=== PATIENT | female | born 1990 | race Caucasian/White ===

== ENCOUNTER 2020-05-27 02:39 | Inpatient (IN) | payer BC ==
[2020-05-27] MEDS ORDERED: Carboprost Tromethamine 250 MCG/1 ML Amp IM PRN (03:01)
[2020-05-27] MEDS ORDERED: Nalbuphine 10 MG/1 ML Vial IVPUSH PRN (03:01)
[2020-05-27] MEDS ORDERED: Lidocaine 1% 50 ML MDV INJECT PRN (03:01)
[2020-05-27] MEDS ORDERED: Tranexamic Acid 1,000 MG in Sodium Chloride 0.9% 100 ML IV PRN (03:01)
[2020-05-27] MEDS ORDERED: Water For Irrigation,Sterile 1,000 ML Container IRR PRN (03:01)
[2020-05-27] MEDS ORDERED: Sodium Chloride 0.9% 10 ML Syringe FLUSH PRN (03:01)
[2020-05-27] MEDS ORDERED: Methylergonovine 0.2 MG/1 ML Amp IM PRN (03:01)
[2020-05-27] MEDS ORDERED: Misoprostol 200 MCG Tab PO PRN (03:01)
[2020-05-27] MEDS ORDERED: Sodium Chloride 0.9% 10 ML SDV IV PRN (03:01)
[2020-05-27] MEDS ORDERED: Butorphanol 1 MG/ML SDV IVPUSH PRN (03:01)
[2020-05-27] MEDS ORDERED: Sodium Chloride 0.9% 2.5 ML Syringe FLUSH PRN (03:01)
[2020-05-27] MEDS ORDERED: Lactated Ringers 1,000 ML IV SCH (03:15)
[2020-05-27] MEDS ORDERED: Oxytocin/0.9 % Sodium Chloride 30 UNIT/500 ML BAG IV SCH (03:15)
--- NOTE | 2020-05-27 05:13 | PCM.LDHP ---
L&D History of Present Illness - General Date of Service: 05/27/20 Admit Problem/Dx: Patient Status Order with Admit Dx/Problem 05/27/20 03:01 Patient Status [ADT] Routine Admission Diagnosis/Problem Admission Diagnosis/Problem Planned Source of Information: Patient History Limitations: Reports: No Limitations - History of Present Illness Improves with: Reports: None Worsens with: Reports: None Associated Symptoms: Reports: N - Related Data Allergies/Adverse Reactions: Allergies Allergy/AdvReac Type Severity Reaction Status Date / Time cat dander Allergy Sneezing Verified 05/27/20 05:02 seasonal Allergy Sneezing Uncoded 05/27/20 05:05 Home Medications: Home Meds Fexofenadine HCl [Franny Allergy] 60 mg PO DAILY 06/26/16 [History] Past Medical History - Past Health History Medical/Surgical History: Denies Medical/Surgical History Respiratory History: Reports: Asthma 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: - Infectious Disease History Infectious Disease History: Reports: Chicken Pox Social & Family History - Family History Family Medical History: Noncontributory - Tobacco Use Smoking Status *Q: Never Smoker Second Hand Smoke Exposure: No H&P Review of Systems - Review of Systems: Review Of Systems: See Below General: Reports: No Symptoms HEENT: Reports: No Symptoms Pulmonary: Reports: No Symptoms Cardiovascular: Reports: No Symptoms Gastrointestinal: Reports: No Symptoms Genitourinary: Reports: No Symptoms Musculoskeletal: Reports: No Symptoms Skin: Reports: No Symptoms Psychiatric: Reports: No Symptoms Neurological: Reports: No Symptoms Hematologic/Lymphatic: Reports: No Symptoms Immunologic: Reports: No Symptoms L&D Exam - Exam Exam: See Below - Vital Signs Weight: 82.1 kg - OB Specific Contraction Intensity: Moderate to Strong Movement: Active Heart Tones: Present Presentation: Vertex - Peoples Score Peoples Score Cervix Position: Anterior Peoples Score Consistency: Soft Peoples Score Dilation: > 5 cm Peoples Score 's Station: -2 - Exam General: Alert, Oriented HEENT: PERRLA, Conjunctiva Clear, EACs Clear, EOMI, Hearing Intact, Mucosa Moist & [place], Nares Patent, Normal Nasal Septum, Posterior Pharynx Clear, TMs Clear Neck: Supple, Trachea Midline Lungs: Clear to Auscultation, Normal Respiratory Effort Cardiovascular: Regular Rate, Regular Rhythm GI/Abdominal Exam: Normal Bowel Sounds, Soft, Non-Tender, No Organomegaly, No Distention, No Abnormal Bruit, No Mass, Pelvis Stable Rectal Exam: Normal Exam, Normal Rectal Tone Genitourinary: Normal external exam, Normal bimanual exam, Normal speculum exam Back Exam: Normal Inspection, Full Range of Motion Extremities: Normal Inspection, Normal Range of Motion, Non-Tender, No Pedal Edema, Normal Capillary Refill Skin: Warm, Dry, Intact Neurological: Cranial Nerves Intact, Reflexes Equal Bilateral Psychiatric: Alert, Normal Affect, Normal Mood - Patient Data Lab Results Last 24 hrs: Laboratory Results - last 24 hr 05/27/20 05/27/20 05/27/20 Range/Units 03:09 03:09 03:14 WBC 15.20 H (4.0-11.0) K/uL RBC 4.09 L (4.30-5.90) M/uL Hgb 11.3 L (12.0-16.0) g/dL Hct 34.4 L (36.0-46.0) % MCV 84.1 (80.0-98.0) fL MCH 27.6 (27.0-32.0) pg MCHC 32.8 (31.0-37.0) g/dL RDW Std Deviation 40.2 (28.0-62.0) fl RDW Coeff of Ceasar 13 (11.0-15.0) % Plt Count 235 (150-400) K/uL MPV 10.10 (7.40-12.00) fL Nucleated RBC % 0.0 /100WBC Nucleated RBCs # 0 K/uL COVID-19 (RAMON) NEGATIVE (NEGATIVE) Blood Type B POSITIVE Antibody Screen NEGATIVE Result Diagrams: 05/27/20 03:09 Problem List Initiated/Reviewed/Updated: Yes Orders Last 24hrs: Active Orders 24 hr Category Date Time Status Patient Status [ADT] Routine ADT 05/27/20 03:01 Active Heart Tones [RC] CONTINUOUS Care 05/27/20 03:01 Active Non Stress Test [RC] PER UNIT ROUTINE Care 05/27/20 03:01 Active May Shower [RC] ASDIRECTED Care 05/27/20 03:01 Active Notify Provider [RC] PRN Care 05/27/20 03:01 Active Up ad Era [RC] ASDIRECTED Care 05/27/20 03:01 Active Vaginal Exam [RC] PRN Care 05/27/20 03:01 Active Vital Signs [RC] PER UNIT ROUTINE Care 05/27/20 03:01 Active RPR (SYPHILIS SERO) W/ RFLX [REF] Routine Lab 05/27/20 03:09 Received Butorphanol [Stadol] Med 05/27/20 03:01 Active 1 mg IVPUSH Q1H PRN Carboprost Tromethamine [Hemabate DS] Med 05/27/20 03:01 Active 250 mcg IM ASDIRECTED PRN Lactated Ringers [Ringers, Lactated] 1,000 ml Med 05/27/20 03:15 Active IV ASDIRECTED Lidocaine 1% [Xylocaine 1%] Med 05/27/20 03:01 Active 50 ml INJECT ONETIME PRN Methylergonovine [Methergine] Med 05/27/20 03:01 Active 0.2 mg IM ASDIRECTED PRN Nalbuphine [Nubain] Med 05/27/20 03:01 Active 10 mg IVPUSH Q1H PRN Oxytocin/0.9 % Sodium Chloride [Oxytocin 30 Unit/500 ML Med 05/27/20 03:15 Active -NS] 30 unit in 500 ml IV TITRATE Sodium Chloride 0.9% [Normal Saline] Med 05/27/20 03:01 Active 10 ml IV ASDIRECTED PRN Sodium Chloride 0.9% [Saline Flush] Med 05/27/20 03:01 Active 10 ml FLUSH ASDIRECTED PRN Sodium Chloride 0.9% [Saline Flush] Med 05/27/20 03:01 Active 2.5 ml FLUSH ASDIRECTED PRN Tranexamic Acid [Cyklokapron] 1,000 mg Med 05/27/20 03:01 Active Sodium Chloride 0.9% [Normal Saline] 100 ml IV ONETIME Water For Irrigation,Sterile [Sterile Water for Med 05/27/20 03:01 Active Irrigation] 1,000 ml IRR ASDIRECTED PRN miSOPROStoL [Cytotec] Med 05/27/20 03:01 Active 200 mcg PO ONETIME PRN Scalp Electrode [WOMSER] Per Unit Routine Oth 05/27/20 03:01 Ordered Peripheral IV Insertion Adult [OM.PC] Routine Oth 05/27/20 03:01 Ordered Resuscitation Status Routine Resus Stat 05/27/20 03:01 Ordered Medication Orders Butorphanol Tartrate (Stadol) 1 mg IVPUSH Q1H PRN PRN Reason: Pain Carboprost Tromethamine (Hemabate Ds) 250 mcg IM ASDIRECTED PRN PRN Reason: Post Hemorrhage Oxytocin/Sodium Chloride (Oxytocin 30 Unit/500 Ml-Ns) 30 unit in 500 mls @ 500 mls/hr IV TITRATE [facility] Tranexamic Acid 1,000 mg/ (Sodium Chloride) 110 mls @ 660 mls/hr IV ONETIME PRN PRN Reason: Bleeding Lactated Ringer's (Ringers, Lactated) 1,000 mls @ 150 mls/hr IV ASDIRECTED GOMEZ Last Admin: 05/27/20 03:17 Dose: 999 mls/hr Documented by: YOLI Lidocaine HCl (Xylocaine 1%) 50 ml INJECT ONETIME PRN PRN Reason: Laceration repair Methylergonovine Maleate (Methergine) 0.2 mg IM ASDIRECTED PRN PRN Reason: Post Hemorrhage Misoprostol (Cytotec) 200 mcg PO ONETIME PRN PRN Reason: Post Hemorrhage Nalbuphine HCl (Nubain) 10 mg IVPUSH Q1H PRN PRN Reason: Pain (severe 7-10) Sodium Chloride (Saline Flush) 10 ml FLUSH ASDIRECTED PRN PRN Reason: Keep Vein Open Sodium Chloride (Saline Flush) 2.5 ml FLUSH ASDIRECTED PRN PRN Reason: Keep Vein Open Sodium Chloride (Normal Saline) 10 ml IV ASDIRECTED PRN PRN Reason: IV Use Sterile Water (Sterile Water For Irrigation) 1,000 ml IRR ASDIRECTED PRN PRN Reason: delivery
[2020-05-27] MEDS ORDERED: Ibuprofen 800 MG Tab PO PRN (06:02)
[2020-05-27] MEDS ORDERED: Ibuprofen 400 MG Tab PO PRN (06:02)
[2020-05-27] MEDS ORDERED: Docusate Sodium 100 MG Cap PO PRN (06:02)
[2020-05-27] MEDS ORDERED: oxyCODONE 5 MG Tab PO PRN (06:02)
[2020-05-27] MEDS ORDERED: Bisacodyl 10 MG Supp RECTAL PRN (06:02)
[2020-05-27] MEDS ORDERED: Acetaminophen 500 MG Tab PO PRN ×2 (06:02)
[2020-05-27] MEDS: Witch Hazel Medicated Pads 40/Jar TOP PRN (08:05)
[2020-05-27] MEDS: Lanolin 100% Cream 7 GM Tube TOP PRN (08:05)
[2020-05-27] MEDS: Benzocaine/Menthol 20%-0.5% Spray 78 GM Cannister TOP PRN (08:05)
--- NOTE | 2020-05-27 13:43 | OR ---
SURGEON: Albin Herrera MD DATE OF PROCEDURE: 05/27/2020 PRIMARY SURGEON: Albin Herrera MD INDICATION: Ms. Tobias is a 29-year-old patient, primigravida. She is followed in our clinic primarily by our Nurse [facility]. The patient had no complication. Her GBS status was negative, and her diabetes screen was normal. The patient is term, 40 weeks. DELIVERY NOTE: She was admitted in active labor. At the time of admission, she was 5 cm, and the patient went natural without epidural. She progressed nicely without any problem to complete, complete, and commenced to push, and after pushing for 45 minutes, she was able to accomplish normal spontaneous vaginal delivery of a female fetus, cried immediately. scores were reported to be 8 and 9, and there was 1 nuchal cord, and then, the placenta delivered spontaneous, complete, and intact without any problem. The patient had a second-degree perineal laceration, and that was repaired with 3-0 Vicryl in layer after infiltrating the area with copious amount of Xylocaine. The estimated blood loss was 350 to 400 mL. There was no complication in the labor process and the delivery. heart rate was category I through the entire process of labor. MAYRA / ARPITA /[id number]
--- NOTE | 2020-05-28 08:07 | PCM.DCSUM1 ---
Discharge Summary - Hospital Course Free Text/Narrative:: Discharge home with baby. Follow up in the clinic in 6 weeks for routine visit. Diagnosis: Stroke: No Modified Ryanne Scale: No Symptoms at All Modified Cleveland Scale Score: 0 - Discharge Data Discharge Date: 05/28/20 Discharge Disposition: Home, Self-Care 01 Condition: Good - Referral to Home Health Primary Care Physician: PCP None - Discharge Diagnosis/Problem(s) (1) (spontaneous vaginal delivery) SNOMED Code(s): 557695247 ICD Code: O80 - ENCOUNTER FOR FULL-TERM UNCOMPLICATED DELIVERY Status: Acute Current Visit: Yes - Patient Instructions Diet: Regular Diet as Tolerated, Drink 8-10+ Glasses/Day Activity: As Tolerated, No Strenuous Activities, Rest and Relax Today Driving: May Drive Today Showering/Bathing: May Shower Notify Provider of: Fever, Increased Pain, Swelling and Redness, Drainage, Nausea and/or Vomiting - Discharge Plan *PRESCRIPTION DRUG MONITORING PROGRAM REVIEWED*: Not Applicable *COPY OF PRESCRIPTION DRUG MONITORING REPORT IN PATIENT SERENA: Not Applicable Prescriptions/Med Rec: Ibuprofen [Motrin] 800 mg PO Q6H PRN #90 tablet PRN Reason: Pain Home Medications: Home Meds Fexofenadine HCl [Franny Allergy] 60 mg PO DAILY 06/26/16 [History] Ibuprofen [Motrin] 800 mg PO Q6H PRN #90 tablet 05/28/20 [Rx] Referrals: [facility] [Outside] Albin Herrera MD [Physician] - 07/08/20 1:30 pm - Discharge Summary/Plan Comment DC Time >30 min.: Yes - General Info Date of Service: 05/28/20 Admission Dx/Problem (Free Text: Patient Status Order with Admit Dx/Problem 05/27/20 03:01 Patient Status [ADT] Routine Admission Diagnosis/Problem Admission Diagnosis/Problem Planned Functional Status: Reports: Pain Controlled, Tolerating Diet, Ambulating, Urinating - Review of Systems General: Reports: No Symptoms HEENT: Reports: No Symptoms Pulmonary: Reports: No Symptoms Cardiovascular: Reports: No Symptoms Gastrointestinal: Reports: No Symptoms Genitourinary: Reports: No Symptoms Musculoskeletal: Reports: No Symptoms Skin: Reports: No Symptoms Neurological: Reports: No Symptoms Psychiatric: Reports: No Symptoms - Patient Data Vitals - Most Recent: Last Vital Signs Temp 97.6 F 05/28/20 04:00 Pulse 73 05/28/20 04:00 Resp 14 05/28/20 04:00 BP 110/66 05/28/20 04:00 Pulse Ox 95 05/28/20 04:00 Weight - Most Recent: 181 lb Lab Results - Last 24 hrs: Laboratory Results - last 24 hr 05/28/20 Range/Units 06:15 Hgb 9.3 L (12.0-16.0) g/dL Hct 28.6 L (36.0-46.0) % Med Orders - Current: Current Medications Acetaminophen (Tylenol Extra Strength) 500 mg PO Q4H PRN PRN Reason: Pain Acetaminophen (Tylenol Extra Strength) 1,000 mg PO Q4H PRN PRN Reason: Pain Benzocaine/Menthol (Dermoplast Pain Relief 20%-0.5% Calcium) 78 gm TOP ASDIRECTED PRN PRN Reason: Perineal Comfort Measure Last Admin: 05/27/20 08:05 Dose: 1 canister Documented by: Bisacodyl (Dulcolax) 10 mg RECTAL ONETIME PRN PRN Reason: Constipation Butorphanol Tartrate (Stadol) 1 mg IVPUSH Q1H PRN PRN Reason: Pain Carboprost Tromethamine (Hemabate Ds) 250 mcg IM ASDIRECTED PRN PRN Reason: Post Hemorrhage Docusate Sodium (Colace) 100 mg PO BID PRN PRN Reason: Constipation Emollient Ointment (Lansinoh Hpa) 0 gm TOP ASDIRECTED PRN PRN Reason: Sore Nipples Last Admin: 05/27/20 08:05 Dose: 7 gm Documented by: Oxytocin/Sodium Chloride (Oxytocin 30 Unit/500 Ml-Ns) 30 unit in 500 mls @ 500 mls/hr IV TITRATE [facility] Last Admin: 05/27/20 05:50 Dose: 500 mls/hr Documented by: Tranexamic Acid 1,000 mg/ (Sodium Chloride) 110 mls @ 660 mls/hr IV ONETIME PRN PRN Reason: Bleeding Lactated Ringer's (Ringers, Lactated) 1,000 mls @ 150 mls/hr IV ASDIRECTED [facility] Last Admin: 05/27/20 03:17 Dose: 999 mls/hr Documented by: Ibuprofen (Motrin) 400 mg PO Q4H PRN PRN Reason: Pain Ibuprofen (Motrin) 800 mg PO Q6H PRN PRN Reason: Pain Lidocaine HCl (Xylocaine 1%) 50 ml INJECT ONETIME PRN PRN Reason: Laceration repair Methylergonovine Maleate (Methergine) 0.2 mg IM ASDIRECTED PRN PRN Reason: Post Hemorrhage Misoprostol (Cytotec) 200 mcg PO ONETIME PRN PRN Reason: Post Hemorrhage Nalbuphine HCl (Nubain) 10 mg IVPUSH Q1H PRN PRN Reason: Pain (severe 7-10) Oxycodone HCl (Oxycodone) 5 mg PO Q2H PRN PRN Reason: Pain Sodium Chloride (Saline Flush) 10 ml FLUSH ASDIRECTED PRN PRN Reason: Keep Vein Open Sodium Chloride (Saline Flush) 2.5 ml FLUSH ASDIRECTED PRN PRN Reason: Keep Vein Open Sodium Chloride (Normal Saline) 10 ml IV ASDIRECTED PRN PRN Reason: IV Use Sterile Water (Sterile Water For Irrigation) 1,000 ml IRR ASDIRECTED PRN PRN Reason: delivery Margarita Montanez (Tucks) 1 pad TOP ASDIRECTED PRN PRN Reason: comfort care Last Admin: 05/27/20 08:05 Dose: 1 container Documented by: - Exam General: Reports: Alert, Oriented, Cooperative Lungs: Reports: Normal Respiratory Effort Cardiovascular: Reports: Regular Rate, Regular Rhythm GI/Abdominal Exam: Soft, Non-Tender (Female) Exam: Deferred Rectal (Female) Exam: Deferred Back Exam: Reports: Normal Inspection, Full Range of Motion Extremities: Normal Inspection, Normal Range of Motion Skin: Reports: Warm, Dry, Intact Wound/Incisions: Reports: Healing Well Neurological: Reports: Normal Speech, Normal Tone Psy/Mental Status: Reports: Alert, Normal Affect, Normal Mood
[2020-05-28] MEDS: Witch Hazel Medicated Pads 40/Jar TOP PRN (08:22)
[2020-05-28] MEDS: Benzocaine/Menthol 20%-0.5% Spray 78 GM Cannister TOP PRN (08:23)
[2020-05-28] MEDS: Lanolin 100% Cream 7 GM Tube TOP PRN (08:23)
[2020-05-28 09:00] VITALS: BP 107/69; PULSE 80
== END 2020-05-28 11:45 | disposition home or self-care (01) | DRG 560 ==
LOC: MW.OBCHECK 02:39 → MW.OB 02:40 → MW.OBCHECK 05:30 → OBSVTOIN 05:49 → MW.OB 08:34
PROVIDERS: ADMIT Obstetrics & Gynecology; ATTEND Obstetrics & Gynecology
PROC: 10E0XZZ Delivery of Products of Conception, External Approach (ICD-10-PCS; principal; 2020-05-27)
PROC: 0KQM0ZZ Repair Perineum Muscle, Open Approach (ICD-10-PCS; 2020-05-27)
DX: O69.81X0 Labor and delivery complicated by cord around neck, without compression, not applicable or unspecified (principal); Z37.0 Single live birth; Z3A.40 40 weeks gestation of pregnancy; O99.52 Diseases of the respiratory system complicating childbirth; J45.909 Unspecified asthma, uncomplicated; Z91.09 Other allergy status, other than to drugs and biological substances; O70.1 Second degree perineal laceration during delivery; Z11.59 Encounter for screening for other viral diseases
CPT/HCPCS: 36415; 59025; 59409; 85014; 85018; 85027; 86592; 86850; 86900; 86901; A9270-GY; J2590; J7120; U0002

== ENCOUNTER 2021-09-22 17:08 | Observation (INO) | payer BC ==
--- NOTE | 2021-09-22 17:11 | EDM.PDOC ---
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 States for the past 3 weeks she has had continuously bleeding in the past 2 days and believes he picked up to where she needs more than 1 pad every 30 minutes. States that she used call for follow-up today and she felt lightheaded weekly took her blood pressure and it was down in the 90s. Her significant other at the bedside states that she looks more pale she is been tired and weak. She denies any abdominal pain no foul-smelling discharge or other complaints. 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: - Infectious Disease History Infectious Disease History: Reports: Chicken Pox Social & Family History - Family History Family Medical History: No Pertinent Family History ED ROS GENERAL - Review of Systems Review Of Systems: See Below Constitutional: Reports: No Symptoms HEENT: Reports: No Symptoms Respiratory: Reports: No Symptoms Cardiovascular: Reports: No Symptoms Endocrine: Reports: No Symptoms GI/Abdominal: Reports: No Symptoms : Reports: Other (Vaginal bleeding) Musculoskeletal: Reports: No Symptoms Skin: Reports: No Symptoms Neurological: Reports: No Symptoms Psychiatric: Reports: No Symptoms Hematologic/Lymphatic: Reports: No Symptoms Immunologic: Reports: No Symptoms ED EXAM - Physical Exam Exam: See Below Exam Limited By: No Limitations General Appearance: Alert, WD/WN, No Apparent Distress Eye Exam: Bilateral Eye: EOMI Head: Atraumatic Neck: Normal Inspection Respiratory/Chest: No Respiratory Distress GI/Abdominal Exam: Normal Bowel Sounds, Soft, Non-Tender Extremities: Normal Inspection Neurological: Alert, Oriented, Normal Cognition, Normal Gait Course - Vital Signs Last Recorded V/S: Last Vital Signs Temp 97.8 F 09/22/21 17:11 Pulse 93 09/22/21 17:11 Resp 18 09/22/21 17:11 BP 100/63 09/22/21 17:11 Pulse Ox 98 09/22/21 17:11 - Orders/Labs/Meds Orders: Active Orders 24 hr Category Date Time Status CBC WITH AUTO DIFF [HEME] Stat Lab 09/22/21 17:09 Ordered COMPREHENSIVE METABOLIC PN,CMP [CHEM] Stat Lab 09/22/21 17:09 Ordered CORONAVIRUS COVID-19 RAMON [MOLEC] Stat Lab 09/22/21 17:16 Ordered HCG QUANTITATIVE [CHEM] Stat Lab 09/22/21 17:09 Ordered LACTATE SEPSIS W/ REFLEX [CHEM] Stat Lab 09/22/21 17:09 Ordered TYPE AND SCREEN [BBK] Stat Lab 09/22/21 17:09 Ordered Departure - Departure Time of Disposition: 17:20 Disposition: Refer to Observation Condition: Good Clinical Impression: Spontaneous - Discharge Information *PRESCRIPTION DRUG MONITORING PROGRAM REVIEWED*: Not Applicable *COPY OF PRESCRIPTION DRUG MONITORING REPORT IN PATIENT SERENA: Not Applicable Forms: ED Department Discharge Sepsis Event Note (ED) - Focused Exam Vital Signs: Vital Signs Temp Pulse Resp BP Pulse Ox 09/22/21 17:11 97.8 F 93 18 100/63 98 - My Orders Last 24 Hours: My Active Orders 09/22/21 17:09 CBC WITH AUTO DIFF [HEME] Stat COMPREHENSIVE METABOLIC PN,CMP [CHEM] Stat HCG QUANTITATIVE [CHEM] Stat LACTATE SEPSIS W/ REFLEX [CHEM] Stat TYPE AND SCREEN [BBK] Stat 09/22/21 17:16 CORONAVIRUS COVID-19 RAMON [MOLEC] Stat - Assessment/Plan Last 24 Hours: My Active Orders 09/22/21 17:09 CBC WITH AUTO DIFF [HEME] Stat COMPREHENSIVE METABOLIC PN,CMP [CHEM] Stat HCG QUANTITATIVE [CHEM] Stat LACTATE SEPSIS W/ REFLEX [CHEM] Stat TYPE AND SCREEN [BBK] Stat 09/22/21 17:16 CORONAVIRUS COVID-19 [facility]ON [MOLEC] Stat Plan: Patient is a 30-year-old female who had a miscarriage at 6 weeks and for the past 4 weeks has had bleeding. She was in the [facility] clinic when I called her back for spotting of the blood pressure dropped and she became lightheaded. We will obtain a CBC p.m. and transfuse as needed.
[2021-09-22] MEDS ORDERED: Sodium Chloride 0.9% 1,000 ML IV ONE (17:27)
[2021-09-22 18:13] LABS: BLOOD UREA NITROGEN,BUN 16 mg/dL (7.0-18.0); CARBON DIOXIDE,CO2 24.2 mmol/L (21.0-32.0); CHLORIDE,CL 106 mmol/L (98-107); GLUCOSE RANDOM 118 mg/dL (74-106); POTASSIUM,K 3.9 mmol/L (3.5-5.1); SODIUM,NA 140 mmol/L (136-145)
[2021-09-22] MEDS ORDERED: Lactated Ringers 1,000 ML IV SCH (21:00)
[2021-09-22] MEDS ORDERED: Ibuprofen 800 MG Tab PO PRN (21:01)
[2021-09-23 08:11] VITALS: BP 121/67; PULSE 89
--- NOTE | 2021-09-23 10:12 | PCM.HP.2 ---
H&P History of Present Illness - General Date of Service: 09/23/21 Admit Problem/Dx: Admission Diagnosis/Problem Admission Diagnosis/Problem Spontaneous Source of Information: Patient History Limitations: Reports: No Limitations - History of Present Illness Improves with: Reports: None Worsens with: Reports: None Associated Symptoms: Reports: No Other Symptoms - Related Data Allergies/Adverse Reactions: Allergies Allergy/AdvReac Type Severity Reaction Status Date / Time cat dander Allergy Sneezing Verified 09/22/21 17:10 seasonal Allergy Sneezing Uncoded 09/22/21 17:10 Home Medications: Home Meds Fexofenadine HCl [Franny Allergy] 60 mg PO DAILY 06/26/16 [History] Ibuprofen [Motrin] 800 mg PO Q6H PRN #90 tablet 05/28/20 [Rx] Past Medical History - Past Health History Medical/Surgical History: Denies Medical/Surgical History Respiratory History: Reports: Asthma 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: - Infectious Disease History Infectious Disease History: Reports: Chicken Pox Social & Family History - Family History Family Medical History: No Pertinent Family History OBGYN: Reports: Endocrine/Metabolic: Reports: None - Tobacco Use Tobacco Use Status *Q: Never Tobacco User - Caffeine Use Caffeine Use: Reports: Coffee - Recreational Drug Use Recreational Drug Use: No H&P Review of Systems - Review of Systems: Review Of Systems: See Below General: Reports: No Symptoms HEENT: Reports: No Symptoms Pulmonary: Reports: No Symptoms Cardiovascular: Reports: No Symptoms Gastrointestinal: Reports: No Symptoms Genitourinary: Reports: No Symptoms Musculoskeletal: Reports: No Symptoms Skin: Reports: No Symptoms Psychiatric: Reports: No Symptoms Neurological: Reports: No Symptoms Hematologic/Lymphatic: Reports: No Symptoms Immunologic: Reports: No Symptoms Exam - Exam Exam: See Below - Vital Signs Vital Signs: Last Vital Signs Temp 37.1 C 09/23/21 08:00 Pulse 89 09/23/21 08:00 Resp 18 09/23/21 08:00 BP 121/67 09/23/21 08:00 Pulse Ox 98 09/23/21 08:00 Weight: 73.482 kg - Exam General: Alert, Oriented, 4 HEENT: PERRLA, Hearing Intact, Mucosa Moist & [place], Nares Patent, Normal Nasal Septum, Posterior Pharynx Clear, Conjunctiva Clear, EOMI, EACs Clear, TMs Clear Neck: Supple, Trachea Midline, 2 Lungs: Clear to Auscultation, Normal Respiratory Effort Cardiovascular: Regular Rate, Regular Rhythm GI/Abdominal Exam: Normal Bowel Sounds, Soft, Non-Tender, No Organomegaly, No Distention, No Abnormal Bruit, No Mass, Pelvis Stable (Female) Exam: Normal External Exam, Normal Speculum Exam, Normal Bimanual E xam Rectal (Female) Exam: Normal Exam, Normal Rectal Tone Back Exam: Normal Inspection, Full Range of Motion, NT Extremities: Normal Inspection, Normal Range of Motion, Non-Tender, No Pedal Edema, Normal Capillary Refill Skin: Warm, Dry, Intact Neurological: Cranial Nerves Intact, Reflexes Equal Bilateral Neuro Extensive - Mental Status: Alert, Oriented x3, Normal Mood/Affect, Normal Cognition Neuro Extensive - Motor, Sensory, Reflexes: CN II-XII Intact, Normal Gait, Normal Reflexes Psychiatric: Alert, Normal Affect, Normal Mood - Patient Data Lab Results Last 24 hrs: Laboratory Results - last 24 hr 09/22/21 09/22/21 09/22/21 Range/Units 17:15 17:15 17:22 WBC 9.72 (4.0-11.0) K/uL RBC 3.72 L (4.30-5.90) M/uL Hgb 10.2 L (12.0-16.0) g/dL Hct 30.3 L (36.0-46.0) % MCV 81.5 (80.0-98.0) fL MCH 27.4 (27.0-32.0) pg MCHC 33.7 (31.0-37.0) g/dL RDW Std Deviation 40.6 (28.0-62.0) fl RDW Coeff of Ceasar 14 (11.0-15.0) % Plt Count 280 (150-400) K/uL MPV 9.30 (7.40-12.00) fL Neut % (Auto) 62.7 (48.0-80.0) % Lymph % (Auto) 28.2 (16.0-40.0) % [place] % (Auto) 6.5 (0.0-15.0) % Eos % (Auto) 2.4 (0.0-7.0) % Baso % (Auto) 0.2 (0.0-1.5) % Neut # (Auto) 6.1 H (1.4-5.7) K/uL Lymph # (Auto) 2.7 H (0.6-2.4) K/uL [place] # (Auto) 0.6 (0.0-0.8) K/uL Eos # (Auto) 0.2 (0.0-0.7) K/uL Baso # (Auto) 0.0 (0.0-0.1) K/uL Nucleated RBC % 0.0 /100WBC Nucleated RBCs # 0 K/uL Sodium 140 (136-145) mmol/L Potassium 3.9 (3.5-5.1) mmol/L Chloride 106 (98-107) mmol/L Carbon Dioxide 24.2 (21.0-32.0) mmol/L BUN 16 (7.0-18.0) mg/dL Creatinine 0.8 (0.6-1.0) mg/dL Est Cr Clr Drug Dosing 97.13 mL/min Estimated GFR (MDRD) > 60.0 ml/min Glucose 118 H (74-106) mg/dL Lactic Acid 1.7 (0.4-2.0) mmol/L Calcium 8.4 L (8.5-10.1) mg/dL Total Bilirubin 0.2 (0.2-1.0) mg/dL AST 12 L (15-37) IU/L ALT 12 L (14-63) IU/L Alkaline Phosphatase 67 (46-116) U/L Total Protein 6.9 (6.4-8.2) g/dL Albumin 3.4 (3.4-5.0) g/dL Globulin 3.5 (2.6-4.0) g/dL Albumin/Globulin Ratio 1.0 (0.9-1.6) HCG, Quant 2515.0 mIU/mL SARS-CoV-2 RNA (RAMON) (NEGATIVE) Blood Type Antibody Screen 09/22/21 09/22/21 09/23/21 Range/Units 17:22 17:30 05:14 WBC 8.01 (4.0-11.0) K/uL RBC 2.86 L (4.30-5.90) M/uL Hgb 7.8 L (12.0-16.0) g/dL Hct 23.4 L (36.0-46.0) % MCV 81.8 (80.0-98.0) fL MCH 27.3 (27.0-32.0) pg MCHC 33.3 (31.0-37.0) g/dL RDW Std Deviation 41.7 (28.0-62.0) fl RDW Coeff of Ceasar 14 (11.0-15.0) % Plt Count 232 (150-400) K/uL MPV 9.00 (7.40-12.00) fL Neut % (Auto) (48.0-80.0) % Lymph % (Auto) (16.0-40.0) % [place] % (Auto) (0.0-15.0) % Eos % (Auto) (0.0-7.0) % Baso % (Auto) (0.0-1.5) % Neut # (Auto) (1.4-5.7) K/uL Lymph # (Auto) (0.6-2.4) K/uL [place] # (Auto) (0.0-0.8) K/uL Eos # (Auto) (0.0-0.7) K/uL Baso # (Auto) (0.0-0.1) K/uL Nucleated RBC % 0.0 /100WBC Nucleated RBCs # 0 K/uL Sodium (136-145) mmol/L Potassium (3.5-5.1) mmol/L Chloride (98-107) mmol/L Carbon Dioxide (21.0-32.0) mmol/L BUN (7.0-18.0) mg/dL Creatinine (0.6-1.0) mg/dL Est Cr Clr Drug Dosing mL/min Estimated GFR (MDRD) ml/min Glucose (74-106) mg/dL Lactic Acid (0.4-2.0) mmol/L Calcium (8.5-10.1) mg/dL Total Bilirubin (0.2-1.0) mg/dL AST (15-37) IU/L ALT (14-63) IU/L Alkaline Phosphatase (46-116) U/L Total Protein (6.4-8.2) g/dL Albumin (3.4-5.0) g/dL Globulin (2.6-4.0) g/dL Albumin/Globulin Ratio (0.9-1.6) HCG, Quant mIU/mL SARS-CoV-2 RNA (RAMON) NEGATIVE (NEGATIVE) Blood Type B POSITIVE Antibody Screen NEGATIVE Result Diagrams: 09/23/21 05:14 09/22/21 17:15 Sepsis Event Note - Evaluation Sepsis Screening Result: No Definite Risk - Focused Exam Vital Signs: Vital Signs Temp Pulse Resp BP Pulse Ox 09/23/21 08:00 37.1 C 89 18 121/67 98 09/23/21 05:15 36.6 C 81 17 116/62 98 09/22/21 23:50 36.9 C 89 15 104/51 L 96 Problem List Initiated/Reviewed/Updated: Yes Orders Last 24hrs: Active Orders 24 hr Category Date Time Status Patient Status [ADT] Routine ADT 09/22/21 17:21 Active Patient Status [ADT] Routine ADT 09/22/21 19:00 Active May Shower [RC] ASDIRECTED Care 09/22/21 23:37 Active Up ad Era [RC] ASDIRECTED Care 09/22/21 23:37 Active Vital Signs [RC] PER UNIT ROUTINE Care 09/22/21 19:00 Active Ibuprofen [Motrin] Med 09/22/21 21:01 Active 800 mg PO Q8H PRN Lactated Ringers [Ringers, Lactated] 1,000 ml Med 09/22/21 21:00 Active IV ASDIRECTED Assess Lochia [WOMSER] Per Unit Routine Oth 09/22/21 23:37 Ordered Peripheral IV Discontinue [OM.PC] Routine Oth 09/22/21 23:37 Ordered Resuscitation Status Routine Resus Stat 09/22/21 23:37 Ordered Medication Orders Lactated Ringer's (Ringers, Lactated) 1,000 mls @ 125 mls/hr IV ASDIRECTED GOMEZ Last Admin: 09/22/21 21:21 Dose: 125 mls/hr Documented by: RENAE Ibuprofen (Ibuprofen 800 Mg Tab) 800 mg PO Q8H PRN PRN Reason: Cramping
--- NOTE | 2021-09-23 10:16 | PCM.PN ---
- General Info Date of Service: 09/23/21 Functional Status: Reports: Pain Controlled - Review of Systems General: Reports: No Symptoms HEENT: Reports: No Symptoms Pulmonary: Reports: No Symptoms Cardiovascular: Reports: No Symptoms Gastrointestinal: Reports: No Symptoms Genitourinary: Reports: No Symptoms Musculoskeletal: Reports: No Symptoms Skin: Reports: No Symptoms Neurological: Reports: No Symptoms Psychiatric: Reports: No Symptoms - Patient Data Vitals - Most Recent: Last Vital Signs Temp 37.1 C 09/23/21 08:00 Pulse 89 09/23/21 08:00 Resp 18 09/23/21 08:00 BP 121/67 09/23/21 08:00 Pulse Ox 98 09/23/21 08:00 Weight - Most Recent: 73.482 kg Lab Results Last 24 Hours: Laboratory Results - last 24 hr 09/22/21 09/22/21 09/22/21 Range/Units 17:15 17:15 17:22 WBC 9.72 (4.0-11.0) K/uL RBC 3.72 L (4.30-5.90) M/uL Hgb 10.2 L (12.0-16.0) g/dL Hct 30.3 L (36.0-46.0) % MCV 81.5 (80.0-98.0) fL MCH 27.4 (27.0-32.0) pg MCHC 33.7 (31.0-37.0) g/dL RDW Std Deviation 40.6 (28.0-62.0) fl RDW Coeff of Ceasar 14 (11.0-15.0) % Plt Count 280 (150-400) K/uL MPV 9.30 (7.40-12.00) fL Neut % (Auto) 62.7 (48.0-80.0) % Lymph % (Auto) 28.2 (16.0-40.0) % [place] % (Auto) 6.5 (0.0-15.0) % Eos % (Auto) 2.4 (0.0-7.0) % Baso % (Auto) 0.2 (0.0-1.5) % Neut # (Auto) 6.1 H (1.4-5.7) K/uL Lymph # (Auto) 2.7 H (0.6-2.4) K/uL [place] # (Auto) 0.6 (0.0-0.8) K/uL Eos # (Auto) 0.2 (0.0-0.7) K/uL Baso # (Auto) 0.0 (0.0-0.1) K/uL Nucleated RBC % 0.0 /100WBC Nucleated RBCs # 0 K/uL Sodium 140 (136-145) mmol/L Potassium 3.9 (3.5-5.1) mmol/L Chloride 106 (98-107) mmol/L Carbon Dioxide 24.2 (21.0-32.0) mmol/L BUN 16 (7.0-18.0) mg/dL Creatinine 0.8 (0.6-1.0) mg/dL Est Cr Clr Drug Dosing 97.13 mL/min Estimated GFR (MDRD) > 60.0 ml/min Glucose 118 H (74-106) mg/dL Lactic Acid 1.7 (0.4-2.0) mmol/L Calcium 8.4 L (8.5-10.1) mg/dL Total Bilirubin 0.2 (0.2-1.0) mg/dL AST 12 L (15-37) IU/L ALT 12 L (14-63) IU/L Alkaline Phosphatase 67 (46-116) U/L Total Protein 6.9 (6.4-8.2) g/dL Albumin 3.4 (3.4-5.0) g/dL Globulin 3.5 (2.6-4.0) g/dL Albumin/Globulin Ratio 1.0 (0.9-1.6) HCG, Quant 2515.0 mIU/mL SARS-CoV-2 RNA (RAMON) (NEGATIVE) Blood Type Antibody Screen 09/22/21 09/22/21 09/23/21 Range/Units 17:22 17:30 05:14 WBC 8.01 (4.0-11.0) K/uL RBC 2.86 L (4.30-5.90) M/uL Hgb 7.8 L (12.0-16.0) g/dL Hct 23.4 L (36.0-46.0) % MCV 81.8 (80.0-98.0) fL MCH 27.3 (27.0-32.0) pg MCHC 33.3 (31.0-37.0) g/dL RDW Std Deviation 41.7 (28.0-62.0) fl RDW Coeff of Ceasar 14 (11.0-15.0) % Plt Count 232 (150-400) K/uL MPV 9.00 (7.40-12.00) fL Neut % (Auto) (48.0-80.0) % Lymph % (Auto) (16.0-40.0) % [place] % (Auto) (0.0-15.0) % Eos % (Auto) (0.0-7.0) % Baso % (Auto) (0.0-1.5) % Neut # (Auto) (1.4-5.7) K/uL Lymph # (Auto) (0.6-2.4) K/uL [place] # (Auto) (0.0-0.8) K/uL Eos # (Auto) (0.0-0.7) K/uL Baso # (Auto) (0.0-0.1) K/uL Nucleated RBC % 0.0 /100WBC Nucleated RBCs # 0 K/uL Sodium (136-145) mmol/L Potassium (3.5-5.1) mmol/L Chloride (98-107) mmol/L Carbon Dioxide (21.0-32.0) mmol/L BUN (7.0-18.0) mg/dL Creatinine (0.6-1.0) mg/dL Est Cr Clr Drug Dosing mL/min Estimated GFR (MDRD) ml/min Glucose (74-106) mg/dL Lactic Acid (0.4-2.0) mmol/L Calcium (8.5-10.1) mg/dL Total Bilirubin (0.2-1.0) mg/dL AST (15-37) IU/L ALT (14-63) IU/L Alkaline Phosphatase (46-116) U/L Total Protein (6.4-8.2) g/dL Albumin (3.4-5.0) g/dL Globulin (2.6-4.0) g/dL Albumin/Globulin Ratio (0.9-1.6) HCG, Quant mIU/mL SARS-CoV-2 RNA (RAMON) NEGATIVE (NEGATIVE) Blood Type B POSITIVE Antibody Screen NEGATIVE Med Orders - Current: Current Medications Lactated Ringer's (Ringers, Lactated) 1,000 mls @ 125 mls/hr IV ASDIRECTED GOMEZ Last Admin: 09/22/21 21:21 Dose: 125 mls/hr Documented by: Ibuprofen (Ibuprofen 800 Mg Tab) 800 mg PO Q8H PRN PRN Reason: Cramping Discontinued Medications Sodium Chloride (Normal Saline) 1,000 mls @ 1,000 mls/hr IV .Bolus ONE Stop: 09/22/21 18:26 Last Admin: 09/22/21 18:44 Dose: 1,000 mls/hr Documented by: - Exam General: Alert, Oriented HEENT: Pupils Equal, Pupils Reactive, EOMI, Mucous Membr. Moist/[place] Neck: Supple Lungs: Clear to Auscultation, Normal Respiratory Effort Cardiovascular: Regular Rate, Regular Rhythm GI/Abdominal Exam: Normal Bowel Sounds, Soft, Non-Tender, No Organomegaly, No Distention, No Abnormal Bruit, No Mass, Pelvis Stable (Female) Exam: Normal External Exam, Normal Speculum Exam, Normal Bimanual Exam Back Exam: Normal Inspection, Full Range of Motion Extremities: Normal Inspection, Normal Range of Motion, Non-Tender, No Pedal Edema, Normal Capillary Refill Skin: Warm, Dry, Intact Wound/Incisions: Healing Well Neurological: No New Focal Deficit Psy/Mental Status: Alert, Normal Affect, Normal Mood - Patient Data Lab Results Last 24 hrs: Laboratory Results - last 24 hr 09/22/21 09/22/21 09/22/21 Range/Units 17:15 17:15 17:22 WBC 9.72 (4.0-11.0) K/uL RBC 3.72 L (4.30-5.90) M/uL Hgb 10.2 L (12.0-16.0) g/dL Hct 30.3 L (36.0-46.0) % MCV 81.5 (80.0-98.0) fL MCH 27.4 (27.0-32.0) pg MCHC 33.7 (31.0-37.0) g/dL RDW Std Deviation 40.6 (28.0-62.0) fl RDW Coeff of Ceasar 14 (11.0-15.0) % Plt Count 280 (150-400) K/uL MPV 9.30 (7.40-12.00) fL Neut % (Auto) 62.7 (48.0-80.0) % Lymph % (Auto) 28.2 (16.0-40.0) % [place] % (Auto) 6.5 (0.0-15.0) % Eos % (Auto) 2.4 (0.0-7.0) % Baso % (Auto) 0.2 (0.0-1.5) % Neut # (Auto) 6.1 H (1.4-5.7) K/uL Lymph # (Auto) 2.7 H (0.6-2.4) K/uL [place] # (Auto) 0.6 (0.0-0.8) K/uL Eos # (Auto) 0.2 (0.0-0.7) K/uL Baso # (Auto) 0.0 (0.0-0.1) K/uL Nucleated RBC % 0.0 /100WBC Nucleated RBCs # 0 K/uL Sodium 140 (136-145) mmol/L Potassium 3.9 (3.5-5.1) mmol/L Chloride 106 (98-107) mmol/L Carbon Dioxide 24.2 (21.0-32.0) mmol/L BUN 16 (7.0-18.0) mg/dL Creatinine 0.8 (0.6-1.0) mg/dL Est Cr Clr Drug Dosing 97.13 mL/min Estimated GFR (MDRD) > 60.0 ml/min Glucose 118 H (74-106) mg/dL Lactic Acid 1.7 (0.4-2.0) mmol/L Calcium 8.4 L (8.5-10.1) mg/dL Total Bilirubin 0.2 (0.2-1.0) mg/dL AST 12 L (15-37) IU/L ALT 12 L (14-63) IU/L Alkaline Phosphatase 67 (46-116) U/L Total Protein 6.9 (6.4-8.2) g/dL Albumin 3.4 (3.4-5.0) g/dL Globulin 3.5 (2.6-4.0) g/dL Albumin/Globulin Ratio 1.0 (0.9-1.6) HCG, Quant 2515.0 mIU/mL SARS-CoV-2 RNA (RAMON) (NEGATIVE) Blood Type Antibody Screen 09/22/21 09/22/21 09/23/21 Range/Units 17:22 17:30 05:14 WBC 8.01 (4.0-11.0) K/uL RBC 2.86 L (4.30-5.90) M/uL Hgb 7.8 L (12.0-16.0) g/dL Hct 23.4 L (36.0-46.0) % MCV 81.8 (80.0-98.0) fL MCH 27.3 (27.0-32.0) pg MCHC 33.3 (31.0-37.0) g/dL RDW Std Deviation 41.7 (28.0-62.0) fl RDW Coeff of Ceasar 14 (11.0-15.0) % Plt Count 232 (150-400) K/uL MPV 9.00 (7.40-12.00) fL Neut % (Auto) (48.0-80.0) % Lymph % (Auto) (16.0-40.0) % [place] % (Auto) (0.0-15.0) % Eos % (Auto) (0.0-7.0) % Baso % (Auto) (0.0-1.5) % Neut # (Auto) (1.4-5.7) K/uL Lymph # (Auto) (0.6-2.4) K/uL [place] # (Auto) (0.0-0.8) K/uL Eos # (Auto) (0.0-0.7) K/uL Baso # (Auto) (0.0-0.1) K/uL Nucleated RBC % 0.0 /100WBC Nucleated RBCs # 0 K/uL Sodium (136-145) mmol/L Potassium (3.5-5.1) mmol/L Chloride (98-107) mmol/L Carbon Dioxide (21.0-32.0) mmol/L BUN (7.0-18.0) mg/dL Creatinine (0.6-1.0) mg/dL Est Cr Clr Drug Dosing mL/min Estimated GFR (MDRD) ml/min Glucose (74-106) mg/dL Lactic Acid (0.4-2.0) mmol/L Calcium (8.5-10.1) mg/dL Total Bilirubin (0.2-1.0) mg/dL AST (15-37) IU/L ALT (14-63) IU/L Alkaline Phosphatase (46-116) U/L Total Protein (6.4-8.2) g/dL Albumin (3.4-5.0) g/dL Globulin (2.6-4.0) g/dL Albumin/Globulin Ratio (0.9-1.6) HCG, Quant mIU/mL SARS-CoV-2 RNA (RAMON) NEGATIVE (NEGATIVE) Blood Type B POSITIVE Antibody Screen NEGATIVE Result Diagrams: 09/23/21 05:14 09/22/21 17:15 Sepsis Event Note - Evaluation Sepsis Screening Result: No Definite Risk - Focused Exam Vital Signs: Vital Signs Temp Pulse Resp BP Pulse Ox 09/23/21 08:00 37.1 C 89 18 121/67 98 09/23/21 05:15 36.6 C 81 17 116/62 98 09/22/21 23:50 36.9 C 89 15 104/51 L 96 - Problem List Review Problem List Initiated/Reviewed/Updated: Yes - My Orders Last 24 Hours: My Active Orders 09/22/21 19:00 Patient Status [ADT] Routine Vital Signs [RC] PER UNIT ROUTINE 09/22/21 21:00 Lactated Ringers [Ringers, Lactated] 1,000 ml IV ASDIRECTED 09/22/21 21:01 Ibuprofen [Motrin] 800 mg PO Q8H PRN 09/22/21 23:37 May Shower [RC] ASDIRECTED Up ad Era [RC] ASDIRECTED Assess Lochia [WOMSER] Per Unit Routine Peripheral IV Discontinue [OM.PC] Routine Resuscitation Status Routine - Assessment Assessment:: Pt stop bleeding. Hct drop from 30 to 23. the pt is asymptomatic and she refuse blood transfusion.
== END 2021-09-23 10:50 | disposition home or self-care (01) ==
LOC: MW.ED 17:08 → MW.OB 17:21
PROVIDERS: ADMIT Obstetrics & Gynecology; ATTEND Obstetrics & Gynecology
DX: O03.9 Complete or unspecified spontaneous abortion without complication (principal); J45.909 Unspecified asthma, uncomplicated; Z91.048 Other nonmedicinal substance allergy status; Z88.8 Allergy status to other drugs, medicaments and biological substances; Z20.822 Contact with and (suspected) exposure to COVID-19
CPT/HCPCS: 36415; 80053; 83605; 84702; 85025; 85027; 86850; 86900; 86901; 87635; 99284; G0378; J7030; J7120; U0002

== ENCOUNTER 2022-11-26 09:42 | Inpatient (IN) | payer BC ==
[2022-11-26] MEDS ORDERED: Misoprostol 200 MCG Tab PO PRN (10:01)
[2022-11-26] MEDS ORDERED: Lidocaine 1% 50 ML MDV INJECT PRN (10:01)
[2022-11-26] MEDS ORDERED: Carboprost Tromethamine 250 MCG/1 ML Amp IM PRN (10:01)
[2022-11-26] MEDS ORDERED: Sodium Chloride 0.9% 2.5 ML Syringe FLUSH PRN (10:01)
[2022-11-26] MEDS ORDERED: Sodium Chloride 0.9% 20 ML SDV IV PRN (10:01)
[2022-11-26] MEDS ORDERED: Tranexamic Acid 1,000 MG in Sodium Chloride 0.9% 100 ML IV PRN (10:01)
[2022-11-26] MEDS ORDERED: Ampicillin 2 GM in Sodium Chloride 0.9% 100 ML IV ONE (10:01)
[2022-11-26] MEDS ORDERED: Sodium Chloride 0.9% 10 ML Syringe FLUSH PRN (10:01)
[2022-11-26] MEDS ORDERED: Water For Irrigation,Sterile 1,000 ML Container IRR PRN (10:01)
[2022-11-26] MEDS ORDERED: Butorphanol 1 MG/ML SDV IVPUSH PRN (10:01)
[2022-11-26] MEDS ORDERED: Methylergonovine 0.2 MG/1 ML Amp IM PRN (10:01)
[2022-11-26] MEDS ORDERED: Ampicillin 2 GM AdvVial IV ONE (10:02)
[2022-11-26] MEDS ORDERED: Sodium Chloride 0.9% 100 ML ONE (10:04)
[2022-11-26] MEDS ORDERED: Oxytocin/0.9 % Sodium Chloride 30 UNIT/500 ML BAG IV SCH (10:15)
[2022-11-26] MEDS ORDERED: Lactated Ringers 1,000 ML IV SCH (10:15)
[2022-11-26] MEDS ORDERED: Acetaminophen 500 MG Tab PO PRN ×2 (11:15)
[2022-11-26] MEDS ORDERED: Docusate Sodium 100 MG Cap PO PRN (11:15)
[2022-11-26] MEDS ORDERED: Ibuprofen 400 MG Tab PO PRN (11:15)
[2022-11-26] MEDS ORDERED: oxyCODONE 5 MG Tab PO PRN (11:15)
[2022-11-26] MEDS ORDERED: Bisacodyl 10 MG Supp RECTAL PRN (11:15)
[2022-11-26] MEDS ORDERED: Lanolin 100% Cream 7 GM Tube TOP PRN (11:15)
[2022-11-26] MEDS: Ibuprofen 800 MG Tab PO PRN (13:16)
[2022-11-26] MEDS: Benzocaine/Menthol 20%-0.5% Spray 78 GM Cannister TOP PRN (13:19)
[2022-11-26] MEDS: Witch Hazel Medicated Pads 40/Jar TOP PRN (13:20)
[2022-11-26] MEDS ORDERED: Ampicillin 1 GM in Sodium Chloride 0.9% 50 ML IV SCH (14:15)
[2022-11-27] MEDS: Witch Hazel Medicated Pads 40/Jar TOP PRN (12:05)
[2022-11-27] MEDS: Benzocaine/Menthol 20%-0.5% Spray 78 GM Cannister TOP PRN (12:05)
[2022-11-27] MEDS: Ibuprofen 800 MG Tab PO PRN (15:49)
[2022-11-28] MEDS: Ibuprofen 800 MG Tab PO PRN (00:29)
[2022-11-28 06:00] VITALS: BP 109/57; PULSE 67
== END 2022-11-28 14:45 | disposition home or self-care (01) | DRG 560 ==
LOC: MW.OBCHECK 09:42 → MW.OB 09:45 → MW.OBCHECK 10:50 → MW.OB 10:51 → OBSVTOIN 11:00 → MW.OB 14:17
PROVIDERS: ADMIT Obstetrics & Gynecology; ATTEND Obstetrics & Gynecology
PROC: 10E0XZZ Delivery of Products of Conception, External Approach (ICD-10-PCS; principal; 2022-11-26)
PROC: 0W8NXZZ Division of Female Perineum, External Approach (ICD-10-PCS; 2022-11-26)
DX: O48.0 Post-term pregnancy (principal); Z37.0 Single live birth; O99.52 Diseases of the respiratory system complicating childbirth; J45.909 Unspecified asthma, uncomplicated; O99.824 Streptococcus B carrier state complicating childbirth; Z20.822 Contact with and (suspected) exposure to COVID-19; O77.0 Labor and delivery complicated by meconium in amniotic fluid; Z3A.40 40 weeks gestation of pregnancy
CPT/HCPCS: 36415; 59025; 59409; 85014; 85018; 85027; 86592; 86850; 86900; 86901; A9270-GY; J0290; J2001; J2590; J7050; U0002

== ENCOUNTER 2024-01-15 13:11 | Inpatient (IN) | payer BC ==
[2024-01-15] MEDS ORDERED: Misoprostol 200 MCG Tab PO PRN (16:57)
[2024-01-15] MEDS ORDERED: Ondansetron 4 MG/2 ML SDV IVPUSH PRN (16:57)
[2024-01-15] MEDS ORDERED: Sodium Chloride 0.9% 2.5 ML Syringe FLUSH PRN (16:57)
[2024-01-15] MEDS ORDERED: Tranexamic Acid IN NACL,ISO-OS 1,000 MG in Premix Bag 1 BAG IV PRN (16:57)
[2024-01-15] MEDS ORDERED: Sodium Chloride 0.9% 20 ML SDV IV PRN (16:57)
[2024-01-15] MEDS ORDERED: Water For Irrigation,Sterile 1,000 ML Container IRR PRN (16:57)
[2024-01-15] MEDS ORDERED: Carboprost Tromethamine 250 MCG/1 mL Vial IM PRN (16:57)
[2024-01-15] MEDS ORDERED: Nalbuphine 10 MG/0.5 ML Syringe IVPUSH PRN (16:57)
[2024-01-15] MEDS ORDERED: Methylergonovine 0.2 MG/1 ML Amp IM PRN (16:57)
[2024-01-15] MEDS ORDERED: Sodium Chloride 0.9% 10 ML Syringe FLUSH PRN (16:57)
[2024-01-15] MEDS: Lactated Ringers 1,000 ML IV SCH (17:29)
[2024-01-15] MEDS: Ampicillin 2 GM in Sodium Chloride 0.9% 100 ML IV ONE (17:29)
[2024-01-15 17:33] LABS: HEMOGLOBIN 11.5 g/dL (12.0-16.0); MEAN CORPUSCULAR HEMOGLOBIN 26.3 pg (28.0-32.0); MEAN CORPUSCULAR HGB CONC 33.8 g/dL (32.0-36.0); MEAN CORPUSCULAR VOLUME 77.8 fL (83.0-99.0); MEAN PLATELET VOLUME 10.4 fL (9.4-12.3); PLATELET COUNT,PLT 246 K/uL (150-400); RED BLOOD CELL COUNT 4.37 M/uL (4.10-5.30); WHITE BLOOD CELL COUNT,WBC 7.31 K/uL (3.9-11.3)
[2024-01-15] MEDS ORDERED: Terbutaline 1 MG/ML SDV SUBCUT PRN (18:46)
[2024-01-15] MEDS: Ampicillin 1 GM in Sodium Chloride 0.9% 50 ML IV SCH (21:09)
[2024-01-15] MEDS: Oxytocin/0.9 % Sodium Chloride 30 UNIT/500 ML BAG IV SCH (21:39)
[2024-01-16] MEDS: Oxytocin/0.9 % Sodium Chloride 30 UNIT/500 ML BAG IV SCH (02:26)
[2024-01-16] MEDS: Lidocaine 1% 50 ML MDV INJECT PRN (02:32)
[2024-01-16] MEDS ORDERED: Docusate Sodium 100 MG Cap PO PRN (03:00)
[2024-01-16] MEDS ORDERED: Lanolin 100% Cream 7 GM Tube TOP PRN (03:00)
[2024-01-16] MEDS: Witch Hazel Medicated Pads 40/Jar TOP PRN (05:58)
[2024-01-16] MEDS: Benzocaine/Menthol 20%-0.5% Spray 78 GM Cannister TOP PRN (05:58)
[2024-01-16] MEDS: Ibuprofen 800 MG Tab PO PRN (07:34)
[2024-01-16] MEDS: Acetaminophen 500 MG Tab PO PRN (14:16)
[2024-01-17 06:15] LABS: HEMATOCRIT 29.5 % (37.0-47.0); HEMOGLOBIN 9.9 g/dL (12.0-16.0)
[2024-01-17 08:25] VITALS: BP 119/69; PULSE 76
== END 2024-01-17 09:20 | disposition home or self-care (01) | DRG 560 ==
LOC: MW.OBCHECK 13:11 → MW.OB 13:37 → MW.OBCHECK 16:57 → MW.OB 16:57 → OBSVTOIN 01-16 02:22 → MW.OB 01-16 04:39
PROVIDERS: ADMIT Obstetrics & Gynecology Obstetrics; ATTEND Obstetrics & Gynecology Obstetrics
PROC: 10E0XZZ Delivery of Products of Conception, External Approach (ICD-10-PCS; principal; 2024-01-16)
PROC: 0KQM0ZZ Repair Perineum Muscle, Open Approach (ICD-10-PCS; 2024-01-16)
DX: O99.824 Streptococcus B carrier state complicating childbirth (principal); O48.0 Post-term pregnancy; O76 Abnormality in fetal heart rate and rhythm complicating labor and delivery; Z3A.41 41 weeks gestation of pregnancy; Z37.0 Single live birth; O70.1 Second degree perineal laceration during delivery
CPT/HCPCS: 36415; 59025; 59409; 85014; 85018; 85027; 86592; 86850; 86900; 86901; A9270-GY; J0290; J2001; J2590; J3490; J7120